=== PATIENT | female | born 1945 | race Caucasian/White ===

== ENCOUNTER → 2019-11-14 10:49 | Outpatient (BNVA) | payer OTHER, SELFPAY | PROVIDERS: Family Provider Nurse Practitioner Family; PCP Nurse Practitioner Family; Visit Provider Nurse Practitioner Family | DX: S62.308A Unspecified fracture of other metacarpal bone, initial encounter for closed fracture (principal); X58.XXXA Exposure to other specified factors, initial encounter | CPT/HCPCS: 73130 ==

== ENCOUNTER 2020-02-10 06:00 | Outpatient (RCR) | payer OTHER, SELFPAY | END 2020-02-25 23:59 | disposition home or self-care (01) | LOC: MOT 06:00 | PROVIDERS: Referring Provider Family Medicine; Visit Provider Family Medicine | DX: M25.649 Stiffness of unspecified hand, not elsewhere classified (principal); S62.609D Fracture of unspecified phalanx of unspecified finger, subsequent encounter for fracture with routine healing | CPT/HCPCS: 97018; 97035; 97110; 97140; 97166; 97760 ==

== ENCOUNTER 2020-02-26 06:00 | Outpatient (RCR) | payer OTHER, SELFPAY | END 2020-03-27 23:59 | disposition home or self-care (01) | LOC: MOT 06:00 | PROVIDERS: Referring Provider Family Medicine; Visit Provider Family Medicine | DX: M25.649 Stiffness of unspecified hand, not elsewhere classified (principal); S62.609D Fracture of unspecified phalanx of unspecified finger, subsequent encounter for fracture with routine healing | CPT/HCPCS: 97110; 97140 ==

== ENCOUNTER → 2020-03-19 17:12 | Outpatient (BNVA) | payer OTHER, SELFPAY | PROVIDERS: Visit Provider Emergency Medicine | DX: Z20.828 Contact with and (suspected) exposure to other viral communicable diseases (principal); R50.9 Fever, unspecified | CPT/HCPCS: 87400; 87635 ==